=== PATIENT | male | born 1945 | race Caucasian/White ===

== ENCOUNTER 2023-09-29 07:00 | Outpatient (CLI) | payer MEDICARE | END 2023-09-29 23:59 | disposition critical access hospital (66) | LOC: EMS 07:00 | DX: R42 Dizziness and giddiness (principal); R53.1 Weakness; R51.9 Headache, unspecified; S50.812A Abrasion of left forearm, initial encounter; W18.39XA Other fall on same level, initial encounter; Y93.E9 Activity, other interior property and clothing maintenance; Y92.003 Bedroom of unspecified non-institutional (private) residence as the place of occurrence of the external cause | CPT/HCPCS: A0425; A0429 ==

== ENCOUNTER 2023-09-29 07:15 | Emergency (ER) | payer MEDICARE ==
--- NOTE | 2023-09-29 07:31 | ED Physician Documentation ---
History of Present Illness - Stated complaint Stated Complaint: GLF/DIZZY/HEAD STRIKE - Chief complaint Chief Complaint: Neuro - History obtained from History obtained from: Patient, EMS - Additonal information Additional information: The patient comes to the emergency department chief complaint of fall and head injury. Patient states he was having trouble sleeping because he was thinking about some things he was worried about and ended up finally getting up at around 2-2:30 this morning. He was rearranging some books on his bookshelf just prior to transport to the emergency department, when he began to feel dizzy while looking up. The patient states that he lost his balance and fell, hitting his head on something nearby in the process, that is not sure what. Patient states he did not lose consciousness, but fell between a couple of objects and was stuck there. His and sister discovered him not too long after, he states, and called EMS. The patient denies any headache. No neck pain. No back pain or chest pain. No abdominal pain. He denies any hip or extremity pain. He does not feel he was injured in any other way. He states that he feels pretty good sitting in the stretcher but is afraid he might feel lightheaded if he gets up. The patient has a pacemaker in place which has been functioning well as far as he knows. He denies any palpitations before the dizzy episode. The patient does take Eliquis. No other complaints at this time. PD PAST MEDICAL HISTORY - Past Medical History Past Medical History: Yes - Past Surgical History Past Surgical History: Yes - Present Medications Home Medications: Ambulatory Orders Medication Instructions Recorded Confirmed Atorvastatin Calcium [Lipitor] 80 mg PO HS 09/29/23 09/29/23 Ezetimibe [Zetia] 10 mg PO DAILY 09/29/23 09/29/23 glipiZIDE [Glucotrol] 5 mg PO BID 09/29/23 09/29/23 - Allergies Allergies/Adverse Reactions: Allergies Allergy/AdvReac Type Severity Reaction Status Date / Time No Known Drug Allergies Allergy Verified 09/29/23 07:28 - Social History Does the pt smoke?: No Smoking Status: Former smoker Does the pt drink ETOH?: No Does the pt have substance abuse?: No - Immunizations Immunizations are current?: Yes - POLST Patient has POLST: Yes PD ED PE NORMAL - Vitals Vital signs reviewed: Yes - General General: Alert and oriented X 3, No acute distress, Well developed/nourished - HEENT HEENT: Atraumatic, PERRL, EOMI, Moist mucous membranes - Neck Neck: Supple, no meningeal sign, No bony TTP - Cardiac Cardiac: RRR, No murmur - Respiratory Respiratory: No respiratory distress, Clear bilaterally - Abdomen Abdomen: Soft, Non tender, Non distended - Back Back: No spinal TTP - Derm Derm: Normal color, Warm and dry, No rash - Extremities Extremities: No deformity, No edema - Neuro Neuro: Alert and oriented X 3, quality process lead 2-12 intact, No motor deficit, No sensory deficit, Normal speech - Psych Psych: Normal mood, Normal affect - Free text exam Free text exam: No rib tenderness or step-off. Results - Vitals Vitals: Oxygen O2 Source Room air - Labs Labs: Laboratory Tests 09/29/23 09/29/23 09/29/23 07:20 07:20 09:35 WBC 7.8 RBC 3.83 L Hgb 12.4 L Hct 38.2 L MCV 99.7 H MCH 32.4 H MCHC 32.5 RDW 13.3 Plt Count 163 MPV 11.8 H Neut # (Auto) 4.2 Lymph # (Auto) 2.5 [place] # (Auto) 0.7 Eos # (Auto) 0.3 Baso # (Auto) 0.0 Absolute Nucleated RBC 0.00 Nucleated RBC % 0.0 Sodium 141 Potassium 4.1 Chloride 107 Carbon Dioxide 24 Anion Gap 10.0 BUN 21 H Creatinine 1.6 H Estimated GFR (MDRD) 42 L Glucose 213 H Calcium 9.0 Total Bilirubin 0.9 AST 20 ALT 27 Alkaline Phosphatase 74 Total Protein 6.3 L Albumin 3.5 Globulin 2.8 Albumin/Globulin Ratio 1.3 Lipase 18 Urine Color LIGHT YELLOW Urine Clarity CLEAR Urine pH 6.0 Ur Specific [place] 1.015 Urine Protein NEGATIVE Urine Glucose (UA) NEGATIVE Urine Ketones NEGATIVE Urine Occult Blood NEGATIVE Urine Nitrite NEGATIVE Urine Bilirubin NEGATIVE Urine Urobilinogen 0.2 (NORMAL) Ur Leukocyte Esterase NEGATIVE Ur Microscopic Review NOT INDICATED Urine Culture Comments NOT INDICATED PD Medical Decision Making - ED course Complexity details: reviewed results, re-evaluated patient, considered differential, d/w patient ED course: The patient was very well-appearing in the emergency department and did not have any obvious head trauma. However, given his history of being on Eliquis and the report of striking his head, he was sent for CT scan of the head and also, of the C-spine. Laboratory studies were obtained, as well as EKG and UA, and the patient was given a liter of 0.9 normal saline. The pt's work-up was largely unremarkable, and I had a long discussion with the pt's . She stated she was concerned about the pt's weakness, yet admitted this has been going on for 2 years, and she has not sought to make any arrangements for the pt because she has been "in denial". The pt has dementia, and states he does not like to follow her instructions. He also has been getting up in the night. The states she doesn't want the pt to have to go somewhere else to live, and the sister does help take care of him too, but the wants to know why the pt is weak and to have something done about it. I have had a direct conversation with her about the fact that we will not be able to solve the issue of chronic weakness in the ED, and most likely, this is due to the pt's dementia and age. I have emphasized to the pt's that she needs to make arrangements for assistance for herself and the pt isha with the pt's PCP, not wait until the very last second when she feels she can't take it anymore. The pt expresses that he knows he needs to listen to his and not be stubborn and argumentative. The states she will make an appointment with pt's PCP. I have also given her resources for assistance. The pt does not meet any criteria for admission, and is stable for d/c. We have discussed the usual indications for return. Departure - Departure Disposition: 01 Home, Self Care Clinical Impression: Dizziness, Dehydration Condition: Stable Instructions: ED Dehydration, ED Dizziness [facility] Comments: The CT scans of your head and spine look good, and your laboratory studies and urinalysis also look good. Most likely, you got dizzy this morning from having your head in the upward position for prolonged period of time. It is important that you take precautions with your balance and that if you start to feel yourself getting dizzy, that you sit down right away before you have a fall. It is also very important to stay hydrated. You were found to be somewhat dehydrated today and this also can contribute to a feeling of dizziness. Please follow-up with your primary care physician for further concerns. No emergent condition has been identified today. Forms: PCP List Discharge Date/Time: 09/29/23 12:00
[2023-09-29 07:39] LABS: BASOPHILS % (AUTO) 0.5 %; EOSINOPHILS # (AUTO) 0.3 10^3/uL (0.0-0.7); EOSINOPHILS % (AUTO) 4.1 %; HCT - HEMATOCRIT 38.2 % (42.0-52.0); HGB - HEMOGLOBIN 12.4 g/dL (14.0-18.0); LYMPHOCYTES # (AUTO) 2.5 10^3/uL (1.5-3.5); LYMPHOCYTES % (AUTO) 31.6 %; MEAN CORPUSCULAR HEMOGLOBIN 32.4 pg (27.0-31.0); MEAN CORPUSCULAR HGB CONC 32.5 g/dL (32.0-36.0); MEAN CORPUSCULAR VOLUME 99.7 fL (80.0-94.0); MEAN PLATELET VOLUME 11.8 fL (7.4-11.4); MONOCYTES # (AUTO) 0.7 10^3/uL (0.0-1.0); MONOCYTES % (AUTO) 9.1 %; NEUTROPHILS # (AUTO) 4.2 10^3/uL (1.5-6.6); NEUTROPHILS % (AUTO) 54.4 %; PLT - PLATELET COUNT 163 10^3/uL (130-450); RED BLOOD COUNT 3.83 10^6/uL (4.70-6.10); RED CELL DISTRIBUTION WIDTH 13.3 % (12.0-15.0); WHITE BLOOD COUNT 7.8 x10^3/uL (4.8-10.8)
[2023-09-29] MEDS: SODIUM CHLORIDE 0.9% 1,000 ML IV STA ×2 (07:43→09:33)
[2023-09-29 07:47] LABS: ALBUMIN 3.5 g/dL (3.2-5.5); ALBUMIN/GLOBULIN RATIO 1.3 (1.0-2.2); BILIRUBIN,TOTAL 0.9 mg/dL (0.2-1.0); CREATININE 1.6 mg/dL (0.6-1.3); POTASSIUM 4.1 mmol/L (3.5-4.5); TOTAL PROTEIN 6.3 g/dL (6.4-8.9)
--- NOTE | 2023-09-29 09:05 | CT Report ---
PROCEDURE: Cervical Spine WO INDICATIONS: fall/head strike TECHNIQUE: Noncontrast 3 mm thick sections acquired from the skull base to the T4 level. Sagittal and coronal r eformats were then constructed. For radiation dose reduction, the following was used: automated exp osure control, adjustment of mA and/or kV according to patient size. COMPARISON: None. FINDINGS: Image quality: Excellent. Bones: No fractures or dislocations. Visualized superior ribs are intact. Soft tissues: Prevertebral soft tissues are normal in thickness. No paravertebral hematomas. No ap ical pneumothoraces. Moderate centrilobular emphysema. IMPRESSION: No acute, displaced fracture or traumatic subluxation. Reviewed by: Jean Grubbs MD on 09/29/2023 9:04 AM [facility] Approved by: Jean Grubbs MD on 09/29/2023 9:04 AM [facility] Station ID: [id number]
--- NOTE | 2023-09-29 09:07 | CT Report ---
PROCEDURE: Head WO INDICATIONS: fall/closed head injury/eliquis TECHNIQUE: Noncontrast 4.5 mm thick angled axial sections acquired from the foramen magnum to the vertex. For r adiation dose reduction, the following was used: automated exposure control, adjustment of mA and/or kV according to patient size. COMPARISON: None FINDINGS: Image quality: Excellent. CSF spaces: Basal cisterns are patent. No extra-axial fluid collections. The ventricles are symmet el[place] in size and shape. Brain: No intracranial bleeds or masses. There is cerebral volume loss for age, with resultant vent ricular and sulcal prominence. There are periventricular and deep white matter chronic small vessel ischemic changes. There is intracranial internal carotid artery atherosclerosis. Skull and face: Calvarium and visualized facial bones appear intact, without suspicious lesions. Sinuses: Visualized sinuses and mastoids are clear. IMPRESSION: No acute intracranial findings. Findings likely associated with chronic microvascular ischemic changes. Reviewed by: Rox Vega MD on 09/29/2023 9:06 AM [facility] Approved by: Rox Vega MD on 09/29/2023 9:06 AM PST Station ID: [id number]
[2023-09-29 09:47] LABS: BILIRUBIN,URINE NEGATIVE (NEGATIVE); CLARITY,URINE CLEAR (CLEAR); GLUCOSE, URINE (UA) NEGATIVE (NEGATIVE); KETONES,URINE (UA) NEGATIVE (NEGATIVE); LEUKOCYTE ESTERASE, URINE NEGATIVE (NEGATIVE); NITRITE,URINE NEGATIVE (NEGATIVE); OCCULT BLOOD,URINE NEGATIVE (NEGATIVE); PROTEIN,URINE NEGATIVE (NEGATIVE); UROBILINOGEN,URINE 0.2 (NORMAL) E.U./dL (NORMAL)
[2023-09-29 12:20] VITALS: BP 152/84; O2SAT 97
== END 2023-09-29 12:00 | disposition home or self-care (01) ==
LOC: ED 07:15
DX: E86.0 Dehydration (principal); R42 Dizziness and giddiness; R53.1 Weakness; F03.90 Unspecified dementia, unspecified severity, without behavioral disturbance, psychotic disturbance, mood disturbance, and anxiety; Z79.01 Long term (current) use of anticoagulants; Z95.0 Presence of cardiac pacemaker; Z87.891 Personal history of nicotine dependence
CPT/HCPCS: 36415; 80053; 81001; 81003; 83690; 85025; 87086; 93005; 96360; 96361; 99284

== ENCOUNTER 2023-10-11 21:14 | Outpatient (CLI) | payer MEDICARE | END 2023-10-11 21:15 | disposition short-term general hospital (02) | LOC: EMS 21:14 | DX: R55 Syncope and collapse (principal); R42 Dizziness and giddiness; R11.2 Nausea with vomiting, unspecified; Z95.0 Presence of cardiac pacemaker; Z79.01 Long term (current) use of anticoagulants | CPT/HCPCS: A0425; A0427 ==